=== PATIENT | male | born 1975 | race Caucasian/White ===

== ENCOUNTER 2018-08-01 17:54 | Emergency (ER) | payer OTHER ==
[2018-08-01 18:00] VITALS: BP 131/77; PULSE 92; RESP 16; TEMP 98.3
[2018-08-01] MEDS ORDERED: KETOROLAC 30 MG/ML 1 ML VIAL IM STA (18:18)
--- NOTE | 2018-08-01 18:21 | ED ---
Back Pain HPI - General Chief Complaint: Back Pain/Injury Stated Complaint: [facility] - BACK PAIN Time Seen by Provider: 08/01/18 18:05 Source: patient, RN notes reviewed Mode of arrival: ambulatory Limitations: no limitations - History of Present Illness Initial Comments: This is a 43-year-old male who presents to the emergency department with chief complaint of low back injury. Patient states that yesterday at work he was getting out of a high low. He reports feeling a pop in his low back and sudden severe sharp pain. Patient reports pain to the left lower part of his back. He states that pain radiates along the back of the thigh down to the knee and wraps around to the groin. He states he does have a history of bulging disks. He states that he does take [place] 10 mg and muscle relaxers. He denies saddle paresthesias or loss of bladder or bowel function. He denies IV drug use. Denies any fevers or chills, chest pain or shortness of breath, abdominal pain, nausea or vomiting, diarrhea or constipation, dysuria or hematuria. - Related Data Home Medications Medication Instructions Recorded Confirmed HYDROcodone/APAP 10-325MG [[place] 1 tab PO HS PRN 07/24/15 08/01/18 10] Lisinopril 20 mg PO DAILY 07/24/15 08/01/18 Atorvastatin [Lipitor] 20 mg PO DAILY 08/01/18 08/01/18 Cyclobenzaprine [Flexeril] 10 mg PO HS 08/01/18 08/01/18 Previous Rx's Medication Instructions Recorded Ibuprofen 600 mg PO Q6HR #20 tablet 08/01/18 Allergies Allergy/AdvReac Type Severity Reaction Status Date / Time No Known Allergies Allergy Verified 08/01/18 18:11 Review of Systems ROS Statement: Those systems with pertinent positive or pertinent negative responses have been documented in the HPI. ROS Other: All systems not noted in ROS Statement are negative. Past Medical History Past Medical History: Hyperlipidemia, Hypertension Additional Past Medical History / Comment(s): back pain History of Any Multi-Drug Resistant Organisms: None Reported Past Surgical History: No Surgical Hx Reported Past Psychological History: No Psychological Hx Reported Smoking Status: Never smoker Past Alcohol Use History: None Reported Past Drug Use History: None Reported General Exam - General Exam Comments Initial Comments: General: Awake and alert, well-developed; in no apparent distress. HEENT: Head atraumatic, normocephalic. Pupils are equal, round and reactive to light. Extraocular movements intact. Oropharynx moist without erythema or exudate. Neck: Supple. Normal ROM. Cardiovascular: Regular rate and rhythm. No murmurs, rubs or gallops. Chest symmetrical. Respiratory: Lungs clear to auscultation bilaterally. No wheezes, rales or rhonchi. Normal respiratory effort with no use of accessory muscles. Musculoskeletal: Normal ROM, no tenderness bilateral upper and lower extremities. Ambulating normally. Skin: [place], warm and dry without rashes or lesions. Neurological: Alert and oriented x3. CN II-XII grossly intact. Speech is fluent and answers are appropriate. No focal neuro deficits. Psychiatric: Normal mood and affect. No overt signs of depression or anxiety noted. Limitations: no limitations Back exam: Present: normal inspection, full ROM, paraspinal tenderness (left lumbar). Absent: vertebral tenderness Course Vital Signs 08/01/18 17:58 Temperature 98.3 F Pulse Rate 92 Respiratory 16 Rate Blood Pressure 131/77 O2 Sat by Pulse 99 Oximetry Medical Decision Making - Medical Decision Making This is a 43-year-old male who presents to the emergency department with chief complaint of low back injury. Patient reports twisting and feeling a pop in his low back yesterday at work. There is tenderness of the left lumbar region. Patient reports pain that radiates down his left thigh. He denies saddle paresthesias or loss of bladder or bowel function. X-ray of the lumbar spine was obtained which revealed mild spondylotic changes with no fractures. Recommended [id number] provide a prescription for ibuprofen. Patient states he is already taking muscle relaxers. Vitals are stable and patient is in no acute distress. He will be discharged home at this time. He is in agreement and voices understanding. All questions were answered. - Radiology Data Radiology results: report reviewed Lumbar spine x-ray impression: Minimal spondylotic changes. No fracture seen. Disposition Clinical Impression: Strain of lumbar region, Lumbar radiculopathy Disposition: HOME SELF-CARE Condition: Good Instructions: Low Back Strain (ED), Lumbar Radiculopathy (ED) Additional Instructions: Please take medications as prescribed. Please follow up with primary care provider within 1-2 days. Return to emergency department if symptoms should worsen or any concerns arise. Prescriptions: Ibuprofen 600 mg PO Q6HR #20 tablet Is patient prescribed a controlled substance at d/c from ED?: No Referrals: Leatha Morel DO [Primary Care Provider] - 1-2 days Time of Disposition: 19:21
--- NOTE | 2018-08-01 18:56 | XR ---
EXAMINATION TYPE: XR lumbar spine 2 or 3V DATE OF EXAM: 08/01/2018 COMPARISON: NONE HISTORY: Back pain TECHNIQUE: 3 views FINDINGS: Vertebra have normal alignment. Posterior elements are intact. There is some spurring at L4 -5. Sacroiliac joints appear normal. There is no compression fracture. IMPRESSION: Minimal spondylotic changes. No fracture seen.
== END 2018-08-01 20:20 | disposition home or self-care (01) ==
LOC: EC 17:54
DX: S39.012A Strain of muscle, fascia and tendon of lower back, initial encounter (principal); M47.26 Other spondylosis with radiculopathy, lumbar region; E78.5 Hyperlipidemia, unspecified; I10 Essential (primary) hypertension; Z79.899 Other long term (current) drug therapy; X50.1XXA Overexertion from prolonged static or awkward postures, initial encounter; Y93.89 Activity, other specified; Y92.69 Other specified industrial and construction area as the place of occurrence of the external cause; Y99.0 Civilian activity done for income or pay
CPT/HCPCS: 72100; 99283; 96372; J1885

== ENCOUNTER → 2024-01-27 | Outpatient (CLI) | payer OTHER ==
--- NOTE | 2024-01-27 17:58 | CA ---
Stress Echo Report Joe Hays Age: 48 Gender: M : 1975 Exam Date: 01/27/2024 10:26 Exam Location: [facility] Ht (in): 67 Wt (lb): 250 Ordering Physician: Leatha Morel DO Referring Physician: Eliza Price Tongue Carrier: Deanna Tripathi RDCS Technologist Procedure CPT: Indication: R07.89 other chest pain ICD-9 Codes: Rhythm: Patient History: CHEST PAIN, DIFFICULTY IN BREATHING, HTN, ELEVATED CHOLESTEROL LEVELS, FAMILY HX OF HEART DISEASE Cardiac Medications: Medications in past 24 hours: Contrast: Stress Results Protocol: Oz Total dose(mL): Exercise Duration (min:sec): 9:[address] Depression (mm): Angina Score: Irizarry Score: METS: 10.9 Resting HR: 67 Resting BP: 102 / 70 Peak HR: 155 Peak BP: 158 / 95 Max Predicted HR: 170 91 % Max Predicted HR Target HR: 145 Double Product: [id number] Stress Summary: BP Response: Reason for Termination: TARGET HR/MAX EXERTION Cardiac Symptoms: NO SYMPTOMS ECG Analysis Resting ECG: Stress ECG: Arrhythmia: Echo Analysis Resting Echo: Peak Echo Analysis: MEASUREMENTS (Male/Female) Normal Values CONCLUSIONS Excellent exercise tolerance Normal electrocardiogram and echocardiogram with exercise Essentially normal stress echocardiogram Dr. Rafi Rojo MD (Electronically Signed) Final Date: 27 January 2024 17:57
== END | disposition home or self-care (01) ==
LOC: RADNMMAIN 09:47
PROVIDERS: ATTEND Family Medicine
DX: R07.89 Other chest pain (principal)
CPT/HCPCS: 93351